=== PATIENT | male | born 1970 | race Caucasian/White ===

== ENCOUNTER → 2020-03-30 11:12 | Outpatient (CLI) | payer BC, SELFPAY ==
--- NOTE | 2020-03-30 11:44 | PC.NURSE ---
Pre and Post Spirometry complete. Albuterol 0.083% given via hand held nebulizer per PFT protocol, Pt tolerated well.
== END ==
PROVIDERS: PCP Family Medicine; Visit Provider Family Medicine
DX: R06.02 Shortness of breath (principal)
CPT/HCPCS: 94060

== ENCOUNTER → 2020-07-14 12:43 | Outpatient (CLI) | payer BC, SELFPAY ==
[2020-07-14 13:45] VITALS: PULSE 72; PULSE 78
--- NOTE | 2020-07-14 14:28 | XR_ITS ---
PROCEDURE: XR CHEST 2V CLINICAL HISTORY: sob Shortness of breath COMPARISON: No exams were available for comparison FINDINGS: The cardiomediastinal silhouette and pulmonary vascularity are within normal limits. There are atelectatic or fibrotic changes in the right middle lobe region. Degenerative changes thoracic spine IMPRESSION: Right middle lobe atelectatic or fibrotic change otherwise negative Dictated by: Jermaine Juárez MD 07/14/2020 15:12 Jermaine Juárez MD in [place] 07/14/2020 15:12
== END ==
PROVIDERS: PCP Family Medicine; Visit Provider Internal Medicine Pulmonary Disease
DX: R06.00 Dyspnea, unspecified (principal); R94.2 Abnormal results of pulmonary function studies
CPT/HCPCS: 71046; 94060; 94640; 94726; 94729

== ENCOUNTER → 2020-07-22 13:08 | Outpatient (CLI) | payer BC, SELFPAY ==
--- NOTE | 2020-07-22 13:09 | CT_ITS ---
PROCEDURE: CT CHEST WO CON [place] 3-4 years Abnormal cxr, 07/24/20 No prior CLINICAL INDICATION: Abnormal CXR Shortness of air COMPARISON: CR XR CHEST 2V from 07/14/2020 TECHNIQUE: Axial images obtained with sagittal and coronal reformats. All CT scans at the facility use one or more dose reduction, viz: automated exposure control, ma/kV adjustment per patient size (including targeted exams where dose is matched to indication, i.e. head), or iterative reconstruction technique. FINDINGS: HEART AND MEDIASTINAL STRUCTURES: There are coronary artery calcifications present. No mediastinal or hilar mass or adenopathy. There is some mild thickening of the pericardium superiorly and anteriorly. LUNGS AND PLEURAL SPACES: There are atelectatic or fibrotic changes in the right middle lobe, right lower lobe posteriorly, lingula, and lower lobes medially. No central obstructing lesions are evident. No suspicious nodules. No infiltrates. No effusions. BONY STRUCTURES: There are degenerative changes of the thoracic spine with mild kyphosis. No acute bony findings. There is mild wedging T5-T6 and T7 which appears chronic UPPER ABDOMEN: Unremarkable. ADDITIONAL FINDINGS: No other significant abnormalities. IMPRESSION: There are scattered areas of atelectatic/fibrotic changes. No central obstructing lesions apparent. Otherwise negative. Dictated by: Jermaine Juárez MD 07/24/2020 11:28 Jermaine Juárez MD in [facility] 07/24/2020 11:28
== END ==
PROVIDERS: PCP Family Medicine; Visit Provider Internal Medicine Pulmonary Disease
DX: J84.10 Pulmonary fibrosis, unspecified (principal); J98.19 Other pulmonary collapse; R93.89 Abnormal findings on diagnostic imaging of other specified body structures
CPT/HCPCS: 71250

== ENCOUNTER → 2020-09-14 09:55 | Outpatient (CLI) | payer BC, SELFPAY ==
--- NOTE | 2020-09-14 10:02 | CA_ITS ---
APPROVED REPORT EXAM: Comprehensive 2D, Doppler, and color-flow Echocardiogram Freelance Designer: Ellie Tom CRT Ht: 6 ft 0 in Wt: 286lbs BSA: 2.48 BP: 115/70 mmHg Indications: COPD, Shortness of Breath, Obesity 2D Dimensions LVOT 2.02 cm (M/F) 1.5-2.5 LA Volume 42.10 mL LA Volume Index 17.00 mL/m2 (M/F) 16-34 M-Mode Dimensions RVDd 3.37 cm (0.9-2.6) LA Diam 3.72 cm (1.9-4.0) LVDd 5.45 cm (3.5-5.7) Ao Diam 4.80 cm (2.0-3.7) LVDs 3.98 cm (3.5-5.7) IVSd 1.92 cm (0.6-1.1) PWd 0.69 cm (0.6-1.1) EF (Teich) 52.10% FS 27.00% EDV (Teich) 144.40 mL TAPSE 2.56 (<1.7) ESV (Teich) 69.20 mL LV Diastology E Decel Time 393.00 (160-240 msec) E/A Ratio 0.90 MED E' 5.70 (< 7 cm/sec) MED A' 9.40 cm/s E'/MED E' Ratio 11.98 (>14) LAT E' 8.60 (<10 cm/sec) LAT A' 13.20 cm/s E/LAT E' Ratio 7.94 (>14) Aortic Valve AO Peak GR. 8.30 mmHg Mitral Valve MV A Velocity 75.00 (40-130 cm/s) E/A Ratio 0.90 MV Decel. Time 393.00 (160-240 ms) Pulmonary Valve PV Peak Velocity 92.00 (50-150 cm/s) Tricuspid Valve TR P. Velocity 168.00 cm/s RAP Estimate 10.00 mmHg RVSP 21.30 mmHg Left Ventricle Left atrium is mildly enlarged, left ventricle is normal size, mild concentric left ventricular hypertrophy, visually estimated ejection fraction 55% with no regional wall motion abnormality, grade 1 diastolic dysfunction seen without tissue Doppler evidence of raise left atrial pressure. Right Ventricle Right atrium and right ventricle mildly enlarged with normal contractility. Aortic Valve Aortic valve is minimally thickened and fibrosed, there is no aortic stenosis or aortic insufficiency. Mitral Valve Mitral valve grossly normal, there is trace mitral regurgitation. Tricuspid Valve Tricuspid grossly normal, there is trace tricuspid regurgitation, tricuspid regurgitation jet velocity is inadequate for calculation of the right ventricular systolic pressure. Pulmonic Valve Pulmonic valve is poorly visualized. Great Vessels Aortic root is normal size. Pericardium No significant pericardial effusion noted. Conclusion 1. Mild biatrial enlargement, normal left ventricular size, mild concentric left ventricular hypertrophy, visually estimated ejection fraction 55% with no regional wall motion abnormality, grade 1 diastolic dysfunction seen without tissue Doppler evidence of raise left atrial pressure. 2. Mildly enlarged right ventricle with normal contractility. 3. Trace mitral and tricuspid regurgitation. 4. No significant pericardial effusion noted. Electronically signed by : Joe Suero, 09/14/2020 17:48:33
--- NOTE | 2020-09-14 10:43 | CT_ITS ---
PROCEDURE: CT SOFT TISSUE NECK WO CON CLINICAL HISTORY: difficulty swallowing COMPARISON: No exams were available for comparison TECHNIQUE: Oral Contrast: None IV Contrast: None Axial images obtained with sagittal and coronal reformats. All CT scans at the facility use one or more dose reduction, viz: automated exposure control, ma/kV adjustment per patient size (including targeted exams where dose is matched to indication, i.e. head), or iterative reconstruction technique. FINDINGS: Evaluation of the soft tissues of the neck are limited due to lack of intravenous contrast. There are few scattered cervical lymph nodes are noted in all [place] stations, not significant by size criteria. There is mild fullness of the bilateral tonsillar pillars and the glossotonsillar folds with the few foci of calcifications, likely secondary to prior tonsillar inflammation. The lateral parapharyngeal spaces, retropharyngeal space, and rest of the soft tissues are unremarkable. The uvula is midline. The vallecula and the piriform sinuses are symmetrical. Otherwise the nasopharynx, oropharynx, larynx and hypopharynx are unremarkable. The submandibular, parotid and thyroid glands are unremarkable. Multilevel degenerative changes of the cervical spine. IMPRESSION: Fullness of the bilateral tonsils and glossotonsillar folds, likely secondary to prior tonsillar inflammation. No focal mass lesions noted within the limitations of the unenhanced study. No other acute abnormality. Dictated by: Carito Jovel 09/14/2020 13:09 Carito Jovel in [place] 09/14/2020 13:09
== END ==
PROVIDERS: PCP Family Medicine; Visit Provider Internal Medicine Pulmonary Disease
DX: R06.00 Dyspnea, unspecified (principal); R13.10 Dysphagia, unspecified
CPT/HCPCS: 70490; 93306

== ENCOUNTER → 2020-09-22 11:52 | Outpatient (CLI) | payer BC, SELFPAY ==
[2020-09-22 12:21] LABS: Basophils % 0.7 % (0.1-2.0); Eosinophils # 0.4 K/mm3 (0.0-0.4); Eosinophils % 5.8 % (0.1-12.0); Hematocrit 42.6 % (42.0-52.0); Hemoglobin 14.9 g/dL (14.1-18.0); Lymphocytes # 2.1 K/mm3 (0.7-4.5); Lymphocytes % 30.3 % (10-50); Mean Corpuscular Hemoglobin 31.7 pg (27.0-31.2); Mean Corpuscular Volume 90.6 fl (80-94); Mean Platelet Volume 7.4 fl (7.4-10.4); Monocytes # 0.5 K/mm3 (0.1-1.0); Monocytes % 7.9 % (1.7-9.3); Neutrophils # 3.7 K/mm3 (1.8-7.8); Neutrophils % 55.4 % (37.0-80.0); Platelet Count 245 K/mm3 (142-424); Red Cell Distribution Width 12.5 % (11.5-17.5); White Blood Count 6.8 K/mm3 (4.8-10.8)
[2020-09-22 12:41] LABS: C-Reactive Protein 3.5 mg/L (0-4)
[2020-09-23 20:20] LABS: Alpha-1-Antitrypsin 114 mg/dL (101-187)
[2020-09-26 11:16] LABS: D001-IgE D pteronyssinus <0.10 kU/L (Class 0); D002-IgE D farinae <0.10 kU/L (Class 0); E001-IgE Cat Dander <0.10 kU/L (Class 0); E005-IgE Dog Dander <0.10 kU/L (Class 0); G002-IgE Bermuda Grass <0.10 kU/L (Class 0); G006-IgE Timothy Grass <0.10 kU/L (Class 0); I006-IgE Cockroach, German <0.10 kU/L (Class 0); Immunoglobulin E, Total 20 IU/mL (6-495); M001-IgE Penicillium chrysogen <0.10 kU/L (Class 0); M002-IgE Cladosporium herbarum <0.10 kU/L (Class 0); M003-IgE Aspergillus fumigatus <0.10 kU/L (Class 0); M006-IgE Alternaria alternata <0.10 kU/L (Class 0); T001-IgE Maple/Box Elder <0.10 kU/L (Class 0); T003-IgE Common Silver Birch <0.10 kU/L (Class 0); T006-IgE Cedar, Mountain <0.10 kU/L (Class 0); T007-IgE Oak, White <0.10 kU/L (Class 0); T008-IgE Elm, American <0.10 kU/L (Class 0); T010-IgE Walnut <0.10 kU/L (Class 0); T011-IgE Maple Leaf Sycamore <0.10 kU/L (Class 0); T014-IgE Cottonwood <0.10 kU/L (Class 0); T015-IgE Ash, White <0.10 kU/L (Class 0); T022-IgE Pecan, Hickory <0.10 kU/L (Class 0); T070-IgE White Mulberry <0.10 kU/L (Class 0); W001-IgE Ragweed, Short <0.10 kU/L (Class 0); W011-IgE Thistle, Russian <0.10 kU/L (Class 0); W014-IgE Pigweed, Common <0.10 kU/L (Class 0); W018-IgE Sheep Sorrel <0.10 kU/L (Class 0)
[2020-09-26 12:29] LABS: E072-IgE Mouse Urine <0.10 kU/L (Class 0)
== END ==
PROVIDERS: Visit Provider Internal Medicine Pulmonary Disease
DX: R06.00 Dyspnea, unspecified (principal); J45.909 Unspecified asthma, uncomplicated; J44.9 Chronic obstructive pulmonary disease, unspecified
CPT/HCPCS: 36415; 82103; 82785; 85025; 86003; 86140

== ENCOUNTER 2022-10-07 10:21 | Day surgery (SDC) | payer BC, SELFPAY ==
[2022-10-05 11:01] VITALS: BMI 36.6
[2022-10-07] VITALS (7 sets, daily range): BP systolic 103–130; BP diastolic 60–91; PULSE 69–82; RESP 16–18; TEMP 36.4–37; O2SAT 92–98
--- NOTE | 2022-10-07 12:51 | EXP.ANES.CKL ---
[facility] Disclaimer: The information contained in this section may have been updated after the patient was seen, as this information can be updated by other users. Medical History Allergies Chronic IgA nephritis History of COVID-19 Hypertension Sinus headache Surgical History History of cholecystectomy Family History Father Heart attack Brother Heart attack Grandfather Prostate cancer Grandmother Stroke Other Cancer Diabetes Social History Smoking Status: Never smoker alcohol intake: current substance use type: denies use current occupational status: employed Travel in the last 8 weeks: None caffeine: Yes [facility] Anesthesia Checklist Patient Identification Patient Identification: Arm Band and Verbal (Name & ) Structural Data Admitted From: Home Planned Operative Procedure/s: Colonoscopy NPO Status Verified Time NPO: 00:00 Airway Assessment C-Spine Mobility Assessed: Yes TMJ Mobility Assessed: Yes Dentition: Good Dentition Neurological Assessment Level of Consciousness: Awake Hx Seizures: No Numbness or tingling in extremities: No Anesthesia Plan Anesthesia Risk discussed: Yes Anesthesia Plan: Verified ASA Class: II Anesthesia Type: MAC
--- NOTE | 2022-10-07 13:24 | [facility].SCOPE ---
Procedure: Date: 10/07/22 Patient Date of :: 1970 Procedure Performed:: Total colonoscopy with polypectomy Indications:: Patient is a pleasant 51-year-old male who was referred for initial screening colonoscopy Performing Provider:: Gallo Masters MD Referring Provider:: Gerardo Richardson Sedation:: MAC sedation Procedure:: Patient history was obtained and appropriate physical examination was performed. Patient's medications and allergies were reviewed. Informed consent was obtained after explaining the benefits, alternatives, and risks of the procedure including, but not limited to, bleeding, perforation, missed lesions, and adverse reaction to anesthesia medications. Patient was transported to endoscopy procedure room. Patient was connected to monitoring devices. Throughout the procedure the patient's blood pressure, pulse, and oxygen saturations were monitored continuously. Patient identification and planned procedure were verified by the staff. Patient was positioned in lateral decubitus position. Digital anorectal exam was performed. Variable stiffness Olympus colonoscope was inserted and advanced under direct visualization to the cecum. Adequacy of the colonic preparation was noted. The colonoscope was advanced a short distance into the terminal ileum. The colonoscope was then slowly withdrawn while carefully examining the color, texture, anatomy, and integrity of the mucosoa circumferentially. Within the rectum retroflexion was performed. Colonoscope was then withdrawn. Within the cecum there was a tiny adenomatous appearing polyp removed with biopsy forceps in its entirety. In the descending colon there was a focal lesion, possible lymphoid aggregate, removed in a piecemeal fashion using biopsy forceps. There was a lesion in the sigmoid colon removed with snare and sent as sigmoid polyp. This was possibly focal colitis versus prolapse polyp. In the rectosigmoid region there was a small to moderate adenomatous appearing polyp removed with cold snare. Just distal to this there was a small polyp removed with cold snare. These were both sent as rectosigmoid polyps. Findings:: Polyps/lesion as noted above Recommendations:: Follow-up colonoscopy pending pathology. Likely 3 to 5 years Complications:: None immediate Estimated blood obtained (mL): 2
== END 2022-10-07 14:10 | disposition home or self-care (01) ==
PROVIDERS: PCP Family Medicine; Visit Provider Surgery
PROC: 0DJD8ZZ Inspection of Lower Intestinal Tract, Via Natural or Artificial Opening Endoscopic (ICD-10-PCS; CPT 45380; principal; 2022-10-07 11:30)
DX: Z12.11 Encounter for screening for malignant neoplasm of colon (principal); D12.0 Benign neoplasm of cecum; D12.4 Benign neoplasm of descending colon; D12.5 Benign neoplasm of sigmoid colon; D12.7 Benign neoplasm of rectosigmoid junction
CPT/HCPCS: 45380; 45385; J2704

== ENCOUNTER 2023-02-10 06:23 | Day surgery (SDC) | payer BC, SELFPAY ==
[2023-02-09 13:29] VITALS: BMI 37.2
[2023-02-10 06:59] VITALS: BP 185/85; PULSE 71; RESP 18; TEMP 36.1; O2SAT 94
--- NOTE | 2023-02-10 08:01 | EXP.OP.NOTE ---
Date of procedure: 02/10/23 Pre-op Diagnosis:: 1.4 cm mid chest skin lesion Post-op Diagnosis:: Same Procedure performed:: Excision of 1.4 cm skin lesion from mid chest Surgeon:: Moisés Zepeda MD Anesthesia: local Estimated blood loss (mL): 5 Operative findings:: Lesion excised in toto Operative note:: After informed consent was obtained the patient was taken to the procedure room. His mid chest was prepped and draped in a sterile fashion. After infiltration with local anesthetic an elliptical incision was made around the lesion. The lesion was excised sharply into the deep subcutaneous tissue and then passed off for pathologic evaluation. Electrocautery was utilized to achieve hemostasis. Skin was reapproximated with interrupted 4-0 nylon in a mattress fashion. Dressings were applied and the patient was discharged home in stable condition. Condition: stable Disposition: no change Specimens:: 1.4 cm mid chest skin lesion Complications:: No immediate
[2023-02-10 08:08] VITALS: BP 160/92; PULSE 69; RESP 17; TEMP 36.8; O2SAT 98
== END 2023-02-10 08:09 | disposition home or self-care (01) ==
PROVIDERS: PCP Family Medicine; Visit Provider Surgery
PROC: (CPT 11402; principal; 2023-02-10 07:30)
DX: D49.2 Neoplasm of unspecified behavior of bone, soft tissue, and skin
CPT/HCPCS: 11402

== ENCOUNTER → 2024-05-03 10:16 | Outpatient (CLI) | payer BC, SELFPAY | LOC: SL 10:17 | PROVIDERS: PCP Family Medicine; Visit Provider Family Medicine | DX: I10 Essential (primary) hypertension (principal); R06.83 Snoring | CPT/HCPCS: G0399 ==